=== PATIENT | female | born 1955 | race Two or more races ===

== ENCOUNTER 2019-09-19 21:30 | Emergency (ER) | payer OTHER ==
[~2019-09-19] VITALS: Ht 160 cm; Wt 77.1 kg
[2019-09-19] MEDS ORDERED: cloNIDine HCL 0.1 MG TAB PO ONE (21:45)
[2019-09-19 22:08] LABS: Basophils # (auto) 0.1 uL; Basophils % (auto) 1.2 % (0.0-2.0); Eosinophils # (auto) 0.1 uL; Eosinophils % (auto) 2.5 % (0.0-7.0); Hematocrit 39.6 % (36.0-46.0); Hemoglobin 13.2 g/dL (12.2-16.2); Lymphocytes # (auto) 2.3 uL; Mean Corpuscular Hemoglobin 29.6 pg (28.0-32.0); Mean Corpuscular Hgb Conc. 33.4 g/dL (32.0-36.0); Mean Corpuscular Volume 88.6 fL (80.0-100.0); Monocytes # (auto) 0.4 uL; Monocytes % (auto) 6.6 % (0.0-12.0); Neutrophils # (auto) 2.5 uL; Neutrophils % (auto) 46.7 % (37.0-80.0); Nucleated Red Blood Cells % 0.1 %; Platelet Count (auto) 114 10^3/uL (140-450); Red Blood Cells 4.47 10^6/uL (4.0-5.20); White Blood Cell 5.4 10^3/uL (4.4-10.8)
[2019-09-19 22:22] LABS: Albumin 3.6 g/dL (3.4-5.0); Anion Gap 9 (5-15); Blood Urea Nitrogen 12 mg/dL (7-18); Calcium 8.4 mg/dL (8.5-10.1); Carbon Dioxide 21 mmol/L (21-32); Chloride 110 mmol/L (98-107); Glucose 194 mg/dL (74-106); Potassium 3.7 mmol/L (3.5-5.1); Sodium 140 mmol/L (136-145)
[2019-09-19 22:24] LABS: Alanine Aminotransferase 53 U/L (13-56); GFR African American 72 mL/min; GFR Non-African American 59 mL/min
[2019-09-19 22:29] LABS: Alkaline Phosphatase 137 U/L (45-117); Aspartate Aminotransferase 59 U/L (15-37); Bilirubin, Total 0.4 mg/dL (0.2-1.0)
[2019-09-20 00:15] VITALS: BP 115/64
[2019-09-20] MEDS ORDERED: LORazepam 0.5 MG TAB PO ONE (00:30)
== END 2019-09-20 01:47 | disposition home or self-care (01) ==
LOC: ER 21:33
DX: G51.0 Bell's palsy (principal); F45.8 Other somatoform disorders; F41.9 Anxiety disorder, unspecified; E11.9 Type 2 diabetes mellitus without complications; I10 Essential (primary) hypertension
CPT/HCPCS: 36415; 70450; 71045; 80053; 82962; 84484; 85025; 93005